=== PATIENT | female | born 1975 | race Caucasian/White ===

== ENCOUNTER 2019-06-27 13:41 | Emergency (ER) | payer BC ==
[2019-06-27 13:56] VITALS: BP 126/51; PULSE 76; RESP 18; TEMP 97.9
--- NOTE | 2019-06-27 14:13 | ED ---
General Adult HPI - General Chief complaint: Recheck/Abnormal Lab/Rx Stated complaint: Sob Time Seen by Provider: 06/27/19 13:57 Source: patient Mode of arrival: ambulatory Limitations: no limitations - History of Present Illness Initial comments: Dictation was produced using [employer] dictation software. please excuse any grammatical, word or spelling errors. Chief Complaint: 44-year-old female here to emergency department requesting albuterol refill. History of Present Illness: 44-year-old female presents today with request for refill of her albuterol rescue inhaler and nebulizers. She states he lost her albuterol inhaler yesterday. She gets asthma attacks infrequently. She has no complaints medically at this time. She also requests to be in for her nebulizer. Patient tried to get a refill from her primary care physician Cresencio because she does not see her PCP very often they wanted patient to come to be ev aluated. She states that that was too cumbersome she came to the ER instead. The ROS documented in this emergency department record has been reviewed and confirmed by me. Those systems with pertinent positive or negative responses have been documented in the HPI. All other systems are other negative and/or noncontributory. PHYSICAL EXAM: General Impression: Alert and oriented x3, not in acute distress HEENT: Normocephalic atraumatic, extra-ocular movements intact, pupils equal and reactive to light bilaterally, mucous membranes moist. Cardiovascular: Heart regular rate and rhythm, S1&S2 audible, no murmurs, rubs or gallops Chest: Lungs clear to auscultation bilaterally, no rhonchi, no wheeze, no rales Abdomen: Bowel sounds present, abdomen soft, non-tender, non-distended, no organomegaly Musculoskeletal: Pulses present and equal in all extremities, no peripheral edema Motor: no focal deficits noted Neurological: CN II-XII grossly intact, no focal motor or sensory deficits noted Skin: Intact with no visualized rashes Psych: Normal affect and mood ED course: 44-year-old female presents with request for albuterol rescue inhaler and nebulizer refill. Sophia's upon arrival are within acceptable limits. Prescriptions provided [facility]. Patient given tubing for her nebulizer. Patient went for discharge. - Related Data Previous Rx's Medication Instructions Recorded Albuterol Inhaler [Ventolin Hfa 1 - 2 puff INHALATION RT-Q6H PRN 06/27/19 Inhaler] #1 inhaler Albuterol Nebulized (Conc) 2.5 mg INHALATION Q6H PRN #24 neb 06/27/19 [Ventolin Nebulized (Conc)] Allergies Allergy/AdvReac Type Severity Reaction Status Date / Time No Known Allergies Allergy Verified 06/27/19 13:53 Review of Systems ROS Statement: Those systems with pertinent positive or pertinent negative responses have been documented in the HPI. ROS Other: All systems not noted in ROS Statement are negative. Past Medical History Past Medical History: Asthma History of Any Multi-Drug Resistant Organisms: None Reported Past Surgical History: Adenoidectomy, Tonsillectomy Past Psychological History: No Psychological Hx Reported Smoking Status: Never smoker Past Alcohol Use History: Occasional Past Drug Use History: None Reported General Exam Limitations: no limitations Course Vital Signs 06/27/19 13:53 Temperature 97.9 F Pulse Rate 76 Respiratory 18 Rate Blood Pressure 126/51 O2 Sat by Pulse 97 Oximetry Disposition Clinical Impression: Medication refill Disposition: HOME SELF-CARE Condition: Good Instructions (If sedation given, give patient instructions): Asthma (ED) Prescriptions: Albuterol Inhaler [Ventolin Hfa Inhaler] 1 - 2 puff INHALATION RT-Q6H PRN #1 inhaler PRN Reason: Dyspnea Albuterol Nebulized (Conc) [Ventolin Nebulized (Conc)] 2.5 mg INHALATION Q6H PRN #24 neb PRN Reason: Wheezing Is patient prescribed a controlled substance at d/c from ED?: No Referrals: Gen Hopson DO [Primary Care Provider] - 1-2 days Time of Disposition: 14:13
== END 2019-06-27 14:24 | disposition home or self-care (01) ==
LOC: EC 13:41
DX: Z76.0 Encounter for issue of repeat prescription (principal); Z87.09 Personal history of other diseases of the respiratory system
CPT/HCPCS: 99284

== ENCOUNTER → 2024-11-19 | Outpatient (CLI) | payer BC ==
--- NOTE | 2024-11-19 16:35 | MM ---
Reason for Exam: Screening (asymptomatic). Baseline mammogram. Patient History: First Full-Term at age 22. Risk Values: Dayana 5 year model risk: 0.7%. NCI Lifetime model risk: 7.7%. Prior Study Comparison: Patient's first Mammogram. Tissue Density: The breasts are heterogeneously dense, which may obscure small masses. Findings: Analyzed By CAD. Asymmetric density centrally left CC view at middle depth probably superimposition shadow. Further evaluation recommended. Additional asymmetric density posterior superior left MLO view for which further evaluation is recommended. Probably also superimposition shadow. No suspicious microcalcification or other discrete abnormality is seen. Overall Assessment: Incomplete: need additional imaging evaluation, BI-RAD 0 Management: Special View Mammogram of the left breast. [facility] will attempt to contact patient to return for supplemental views and ultrasound if indicated. [facility], , 11/19/2024 4:32 PM. Electronically signed and approved by: Rosie Hoang M.D. Radiologist
== END | disposition home or self-care (01) ==
LOC: RADMAMWWP 15:32
PROVIDERS: ATTEND Obstetrics & Gynecology
DX: Z12.31 Encounter for screening mammogram for malignant neoplasm of breast (principal); R92.333 Mammographic heterogeneous density, bilateral breasts
CPT/HCPCS: 77067

== ENCOUNTER → 2024-11-24 | Outpatient (CLI) | payer BC ==
--- NOTE | 2024-11-24 15:23 | MM ---
Reason for Exam: Follow-up at short interval from prior study. Last screening mammogram was performed less than 1 month ago. Patient History: First Full-Term at age 22. Risk Values: Dayana 5 year model risk: 0.7%. NCI Lifetime model risk: 7.7%. Prior Study Comparison: 11/19/2024 Bilateral MG screening mammo w CAD, [facility]. Tissue Density: Left: The breasts are heterogeneously dense, which may obscure small masses. Findings: Analyzed By CAD. No distinct suspicious lesion persists on additional views. Overall Assessment: Negative, BI-RAD 1 Management: Screening Mammogram of both breasts in 1 year. Return to routine follow-up. Results were given to the patient verbally at the time of exam. Patient should continue monthly self-breast exams. A clinical breast exam by your physician is recommended on an annual basis. This exam should not preclude additional follow-up of suspicious palpable abnormalities. Note on Dayana scores and lifetime risk: 1. A Dayana score greater than 3% is considered moderate risk. If this is the case, consider specialist referral to assess eligibility for a risk reducing agent. 2. If overall lifetime risk for the development of breast cancer is 20% or higher, the patient may qualify for future screening with alternating mammogram and breast MRI. [facility], , 11/24/2024 3:20 PM. Electronically signed and approved by: Kingsley Romo M.D.
== END | disposition home or self-care (01) ==
LOC: RADMAMWWP 15:04
PROVIDERS: ATTEND Obstetrics & Gynecology
DX: R92.8 Other abnormal and inconclusive findings on diagnostic imaging of breast (principal); R92.332 Mammographic heterogeneous density, left breast
CPT/HCPCS: 77061; 77065